=== PATIENT | female | born 1995 | race Caucasian/White ===

== ENCOUNTER 2020-04-24 20:30 | Emergency (ER) | payer OTHER, SELFPAY ==
--- NOTE | ~2020-04-24 | US_ITS ---
US OB <= 14 weeks fetus DATE: 04/24/2020 22:05 INDICATION: Abdominal pain in TECHNIQUE: Real-time imaging and Doppler analysis COMPARISON: None FINDINGS: No intrauterine gestational sac is identified. Central endometrial echo measures up to 9 mm AP dimension. There is measures 9.0 cm height, 4.2 cm AP and 6.9 cm transverse dimension. Right ovary 4.4 x 3.4 x 3.5 cm with a 3.7 cm cyst. Left ovary 2.6 x 2.1 x 2.1 cm with a 1.6 cm cyst. There is mild free fluid adjacent to the right ovar y. IMPRESSION: No intrauterine gestational sac identified Bilateral ovarian cysts, small fluid collection adjacent to right ovary Reviewed, dictated and finalized at [facility]. Reviewed, dictated and finalized at [facility]. ITAL ADMISSIONS OFFICER
[2020-04-24 20:31] VITALS: BP 126/73; PULSE 113; RESP 20; TEMP 37.3; O2SAT 100
--- NOTE | 2020-04-24 20:44 | ED.ABDPAIN ---
HPI - Abdominal Pain General Chief Complaint: Abdominal Pain Stated Complaint: ,cramping, dizzy Time Seen by Provider: 04/24/20 20:33 Source: RN notes reviewed History of Present Illness HPI narrative: Patient presents to emergency department from home for abdominal pain. Patient states symptoms began yesterday. The pain is described as cramping located in the bilateral lower abdomen. Patient states she is but has not seen RAIL FILLER. States her last menstrual cycle was at the beginning of February. Patient is G4, P3. She denies any fevers or chills chest pain shortness of breath nausea vomiting diarrhea vaginal bleeding or discharge or any other symptoms states she has had no work-up for her current she states she took no pain medication at Related Data Home Medications Medication Instructions Recorded Confirmed No Home Medications 04/24/20 04/24/20 Allergies Allergy/AdvReac Type Severity Reaction Status Date / Time No Known Allergies Allergy Verified 04/24/20 20:37 Review of Systems Review of Systems: Narrative: Gen.: Denies fevers or chills Eyes: Denies eye pain or visual change ENT: Denies congestion Respiratory: Denies shortness of breath or cough CV: Denies chest pain or palpitations GI: Reports abdominal pain. Denies nausea vomiting or diarrhea denies vaginal bleeding or discharge Musculoskeletal: Denies back pain or muscle pain Neuro: Denies numbness, tingling, weakness or focal weakness reports mild dizziness Skin: Denies rash Except as documented, all other systems reviewed and negative [facility] Past Medical History Medical History (Updated 04/24/20 @ 22:42 by Scotty Colbert DO) Patient denies significant medical history Social History Social History (Updated 04/24/20 @ 20:45 by Scotty Colbert DO) Smoking status: Never smoker Exam Narrative: Exam Narrative: APPEARANCE: No acute distress, nontoxic, resting in bed HEENT: Normocephalic, atraumatic, OMM RESPIRATORY: No respiratory distress, clear to auscultation bilaterally with no rhonchi wheezing or rales CARDIOVASCULAR: RRR s murmur ABDOMINAL: Soft nondistended, diffusely tender to palpation no rebound or guarding : Normal external exam today small amount of white discharge no vaginal bleeding cervix closed MUSCULOSKELETAl: Moves all extremities. No clubbing, cyanosis or edema. NEURO: Awake and alert. Following commands, speech normal, no focal deficits SKIN:: Warm, dry. Normal Color PSYCHIATRIC: Normal affect/mood Course Course Emergency Course: Called and discussed with Dr. Murillo presentation and work-up this time agrees with plan for discharge to follow-up as an Patient states that they are feeling much better at this time. States abdominal pain has resolved. Repeat abdominal exam shows the patient's abdomen to be soft and nontender. Discussed with patient results of workup and diagnosis. Discussed need for follow-up with primary care physician, reasons to return to the emergency department in proper use of medication. Patient understands and agrees to current treatment plan I did discuss with the patient ultrasound results and that no IUP is seen discussed possibility of early versus early ectopic and need for follow-up with RAIL FILLER in 2 days for further evaluation Vital Signs Vital signs: Vital Signs Temperature 99.2 F 04/24/20 20:31 Pulse Rate 113 H 04/24/20 20:31 Respiratory Rate 20 04/24/20 20:31 Blood Pressure 126/73 04/24/20 20:31 Pulse Oximetry 100 04/24/20 20:31 Temperature 99.2 F 04/24/20 20:31 Pulse Rate 113 H 04/24/20 20:31 Respiratory Rate 20 04/24/20 20:31 Blood Pressure 126/73 04/24/20 20:31 Pulse Oximetry 100 04/24/20 20:31 MDM - Abdominal Pain Lab Data Result diagrams: 04/24/20 20:50 04/24/20 20:50 Labs: Lab Results 04/24/20 04/24/20 04/24/20 Range/Units 20:50 20:50 20:50 WBC 7.3 (4.5-10.0) K/m
[2020-04-24] MEDS: SODIUM CHLORIDE 0.9% IV 1,000 ML 999 ML IV CONT (20:52)
[2020-04-24 20:55] LABS: Basophils Absolute Auto 0.1 K/mm3 (0.0-0.1); Eosinophils Absolute Auto 0.2 K/mm3 (0-0.3); Eosinophils Percent Auto 2.3 % (0-4.4); Hematocrit 37.5 % (37.0-47.0); Hemoglobin 13.3 g/dL (12.0-15.0); Immature Granulocyte Absolute 0.02 K/mm3 (0.00-0.031); Immature Granulocyte Percent A 0.3 % (0-0.5); Lymphocytes Absolute Auto 2.62 K/mm3 (0.9-3.2); Lymphocytes Percent Auto 36.1 % (18.3-44.2); Mean Corpuscular HGB Conc 35.5 g/dl (32-36); Mean Corpuscular Hemoglobin 32.4 pg (26-34); Mean Corpuscular Volume 91.5 fl (80-100); Mean Platelet Volume 9.8 fl (7.4-10.4); Monocytes Absolute Auto 0.6 K/mm3 (0.1-0.6); Monocytes Percent Auto 7.6 % (2.6-8.5); Neutrophils Absolute Auto 3.8 K/mm3 (1.3-6.7); Neutrophils Percent Auto 52.7 % (45.5-73.1); Platelet Count Result 226 k/mm3 (150-375); Red Cell Distribution Width 12.3 % (11.5-14.5); White Blood Count 7.3 K/mm3 (4.5-10.0)
[2020-04-24 20:58] LABS: Add Urine Microscopic? YES; Appearance Urine Clear (Clear); Bacteria Urine Trace /hpf; Bilirubin Urine Negative (Negative); Blood Urine Negative (Negative); Color Urine Straw (Yellow); Glucose Urine UA Negative (Negative); Ketones Urine Negative (Negative); Leukocyte Esterase Ur Trace LEU/UL (Negative); Mucus Urine Rare /lpf; Nitrate Urine Negative (Negative); Protein Urine Negative (Negative); RBC Urine 0-2 /hpf (0-2); Specific Grav Ur 1.013 (1.001-1.035); Squamous Epithelial Cell Urine Many /hpf (Few); Urobilinogen Urine Negative mg/dL (<2.0); WBC Urine 0-3 /hpf
[2020-04-24 21:10] LABS: Alanine Aminotransferase 14 U/L (4-35); Albumin Level 4.4 g/dL (3.5-5.1); Alkaline Phosphatase 46 U/L (38-126); Anion Gap 8 mmol/L (8-16); Aspartate Amino Transferase 21 U/L (14-36); Bilirubin,Total 0.4 mg/dL (0.2-1.3); Blood Urea Nitrogen 12 mg/dL (7-17); Calcium 9.5 mg/dL (8.4-10.2); Carbon Dioxide 25 mmol/L (22-30); Chloride 105 mmol/L (98-107); Estimated CRCL calculation 103 ml/min; Estimated Glomerular Filt Rate > 60; Glucose 97 mg/dL (65-105); Lipase 135 U/L (23-300); Potassium 3.8 mmol/L (3.4-5.0); Sodium 138 mmol/L (137-145)
[2020-04-24 22:56] VITALS: BP 107/68; PULSE 99; RESP 18; O2SAT 100
== END 2020-04-24 22:57 | disposition home or self-care (01) ==
PROVIDERS: Emergency Provider Emergency Medicine; PCP Physician Assistant
DX: O26.891 Other specified pregnancy related conditions, first trimester (principal); R10.32 Left lower quadrant pain; O34.81 Maternal care for other abnormalities of pelvic organs, first trimester; N83.202 Unspecified ovarian cyst, left side; N83.201 Unspecified ovarian cyst, right side; Z3A.01 Less than 8 weeks gestation of pregnancy
CPT/HCPCS: 36415; 76801; 80053; 81001; 81025; 83690; 84702; 85025; 96361; 96374; 99284; J0131; J7030

== ENCOUNTER 2020-05-03 09:51 | Outpatient (CLI) | payer OTHER, SELFPAY | END 2020-05-03 09:52 | disposition home or self-care (01) | LOC: ANHLAB 09:52 | PROVIDERS: PCP Physician Assistant; Visit Provider Obstetrics & Gynecology | DX: O20.0 Threatened abortion (principal) | CPT/HCPCS: 36415; 84702 ==

== ENCOUNTER 2020-05-07 09:31 | Outpatient (CLI) | payer OTHER, SELFPAY ==
--- NOTE | ~2020-05-07 | US_ITS ---
EXAMINATION: US OB <=14 wk fetus w TV EXAM DATE: 05/07/2020 10:12 INDICATION: Threatened . Check viability. 1st trimester. TECHNIQUE: Pelvic obstetrical transabdominal and transvaginal sonogram was performed by a technologrodri michelle. There are multiple grayscale and Doppler images available for interpretation. Comparison is made to prior examination from 04/24/2020. FINDINGS: Uterus measures 9.4 x 5.5 x 6.5 cm. There is intrauterine gestation sac. The 1.1 cm mean sac diameter corresponds to estimated gestational age by ultrasound of 5 weeks 5 days. Yolk sac is i dentified. No pole is identified. There is no sonographic evidence of subchorionic hemorrhage. Right ovary likely has the corpus luteal cyst. IMPRESSION: Small intrauterine gestation sac, age by ultrasound 5 weeks 5 days. Cannot confirm pole or viability at this time. Reviewed, dictated and finalized at [facility]. ITY SUPERVISOR IMPRESSION: Small intrauterine gestation sac, age by ultrasound 5 weeks 5 days . Cannot confirm pole or viability at this time.
== END 2020-05-07 09:32 | disposition home or self-care (01) ==
LOC: ANHIMG 09:39
PROVIDERS: PCP Physician Assistant; Visit Provider Obstetrics & Gynecology
DX: O20.0 Threatened abortion (principal); Z3A.01 Less than 8 weeks gestation of pregnancy
CPT/HCPCS: 76801; 76817

== ENCOUNTER 2020-06-13 08:57 | Emergency (ER) | payer OTHER, SELFPAY ==
[2020-06-13 09:00] VITALS: BP 124/86; PULSE 91; RESP 16; TEMP 36.8; O2SAT 100
[2020-06-13 09:20] LABS: Add Urine Microscopic? YES; Appearance Urine Sl Cloudy (Clear); Bilirubin Urine Negative (Negative); Blood Urine 1+ (Negative); Color Urine Yellow (Yellow); Glucose Urine UA Negative (Negative); Ketones Urine Negative (Negative); Leukocyte Esterase Ur 2+ LEU/UL (Negative); Nitrate Urine Negative (Negative); Protein Urine Trace (Negative); Specific Grav Ur 1.025 (1.010-1.020); Urobilinogen Urine 0.2 mg/dL (0.2-1.0); pH Urine 6.5 (5.0-8.0)
--- NOTE | 2020-06-13 09:23 | ED.NAVMDI ---
HPI - Nausea/Vomiting/Diarrhea General Chief complaint: Nausea/Vomiting/Diarrhea Stated complaint: ambulance Source: patient, family and RN notes reviewed Mode of arrival: ambulatory Limitations: no limitations History of Present Illness MD elicited complaint: nausea and vomiting Onset (ago): hour(s) (8) Description of vomiting: food contents and watery Associated nausea: Yes Associated abdominal pain: Yes Location of pain: diffuse Pain consistency: colicky Severity: moderate Quality: cramping Exacerbating factors: eating Relieving factors: none Associated symptoms: denies other symptoms Related Data Allergies Allergy/AdvReac Type Severity Reaction Status Date / Time Penicillins Allergy Unknown Verified 06/13/20 09:08 Review of Systems Review of Systems: All systems reviewed & are unremarkable except as noted in HPI and below PMFSH Past Medical History Medical History (Updated 06/13/20 @ 10:43 by Sebastian Gilman MD) Anxiety and depression Patient denies significant medical history Social History Social History Smoking status: Never smoker Alcohol intake: never Substance use: never Exam Const: General: healthy appearing and no acute distress Nutritional Appearance: well nourished and thin Orientation/consciousness: patient oriented x3 Other: female nurse in room during examination. HENMT: Head: normal to inspection Eyes: Cornea: corneas normal Pupils: Equal, round and reactive pupils present EOM: EOMs intact bilaterally Neck: Neck: normal visual inspection Resp: Effort & Inspection: normal respiratory effort Auscultation: clear to auscultation bilaterally Cardio: Rate: regular rate Rhythm: regular rhythm GI: GI Palp: Yes Soft to palpation, Yes Tenderness to palpation present (GI) (moderate lower quadrants), Yes Guarding due to palpation present (GI) and No Rebound tenderness present Auscultation: normal bowel sounds : General: Yes no CVA tenderness Back/Spine/Pelvis: Cervical Spine: cervical ROM normal Thoracic/Lumbar Spine: thoraco-lumbar ROM normal Skin: General skin exam: normal color Rashes: no rashes Neuro: General: patient oriented x3, moves all extremities, no meningeal signs and no focal motor deficits Speech: normal speech Gait exam (Neuro): Normal gait present Extrem: General: normal to inspection and no clubbing, cyanosis or edema Psych: Appearance: grossly normal and well kempt Mental Status: mental status grossly normal Affect: normal affect Attitude: cooperative Thought content: Yes Normal thought content present Course Vital Signs Vital signs: Vital Signs Temperature 36.8 C 06/13/20 09:00 Pulse Rate 91 06/13/20 09:00 Respiratory Rate 16 06/13/20 09:00 Blood Pressure 124/86 06/13/20 09:00 Pulse Oximetry 100 06/13/20 09:00 Temperature 36.8 C 06/13/20 09:00 Pulse Rate 91 06/13/20 09:00 Respiratory Rate 16 06/13/20 09:00 Blood Pressure 124/86 06/13/20 09:00 Pulse Oximetry 100 06/13/20 09:00 MDM - Nausea/Vomiting/Diarrhea Lab Data Attestation: I reviewed the patient's lab results. Labs: Lab Results 06/13/20 Range/Units 09:02 Urine Color Pending Urine Appearance Pending Urine pH Pending Ur Specific [place] Pending Urine Protein Pending Urine Glucose (UA) Pending Urine Ketones Pending Ur Blood (Man) Pending Urine Nitrate Pending Urine Bilirubin Pending Urine Urobilinogen Pending Leukocyte Esterase Rfl Pending Discharge Plan Discharge Clinical Impression: UTI (urinary tract infection) Qualifiers: Urinary tract infection type: site unspecified Hematuria presence: without hematuria Qualified Code(s): N39.0 - Urinary tract infection, site not specified Patient Disposition: Home, Self-Care Condition: Stable Instructions: Urinary Tract Infection in Women (ED) Additional Instructions: Drink plenty of flu
[2020-06-13 09:28] LABS: Bacteria Urine 2+ /hpf; Mucus Urine Moderate /lpf; Squamous Epithelial Cell Urine Many /hpf (Few); WBC Urine 16-20 /hpf (0-3)
[2020-06-13 09:33] LABS: Basophils Absolute Auto 0.03 K/mm3 (0.00-0.10); Basophils Percent Auto 0.7 % (0.0-1.0); Eosinophils Absolute Auto 0.01 K/mm3 (0.02-0.50); Eosinophils Percent Auto 0.2 % (1.0-6.0); Hematocrit 37.7 % (35.0-49.0); Hemoglobin 13.2 g/dL (12.0-15.0); Immature Granulocyte Absolute 0.02 K/mm3 (0.00-0.00); Immature Granulocyte Percent A 0.4 % (0.0-0.0); Lymphocytes Absolute Auto 0.77 K/mm3 (1.10-4.50); Lymphocytes Percent Auto 16.9 % (18.0-42.0); Mean Corpuscular Hemoglobin 31.9 pg (27.0-31.0); Mean Corpuscular Volume 91.1 fL (78.0-102.0); Mean Platelet Volume 9.9 fl (9.2-11.8); Monocytes Absolute Auto 0.19 K/mm3 (0.10-0.90); Monocytes Percent Auto 4.2 % (2.0-11.0); Neutrophils Absolute Auto 3.5 K/mm3 (1.7-7.2); Neutrophils Percent Auto 77.6 % (50.0-70.0); Platelet Count Result 209 K/mm3 (150-420); Red Blood Count 4.14 M/mm3 (4.20-5.40); Red Cell Distribution Width 12.7 % (11.6-14.4); White Blood Count 4.6 K/mm3 (4.8-10.8)
[2020-06-13 09:54] LABS: Alanine Aminotransferase 16 U/L (14-59); Albumin Level 4.1 g/dL (3.4-5.0); Alkaline Phosphatase 48 U/L (46-116); Anion Gap 13 mmol/L (8-16); Aspartate Amino Transferase 10 U/L (15-37); Bilirubin,Total 0.5 mg/dL (0.00-1.00); Blood Urea Nitrogen 7 mg/dL (7-18); Calcium 9.2 mg/dL (8.5-10.1); Carbon Dioxide 22 mmol/L (21-32); Chloride 107 mmol/L (98-108); Estimated Glomerular Filt Rate > 60; Glucose 105 mg/dL (70-99); Lipase 115 U/L (73-393); Osmolality Calculated 292 mOsm/kg (285-295); Potassium 3.8 mmol/L (3.5-5.1); Sodium 142 mmol/L (136-145); Total Protein 7.4 g/dL (6.4-8.2)
[2020-06-13 09:55] LABS: CRP 0.3 mg/dL (0.0-0.9)
[2020-06-13] MEDS: ONDANSETRON HCL ODT 4 MG TABLET (10:23)
[2020-06-13 10:39] LABS: Urine Pregnancy Test Negative
[2020-06-13 10:40] LABS: Pregnancy On Board Control Positive
[2020-06-13 10:57] VITALS: RESP 16
== END 2020-06-13 10:57 | disposition home or self-care (01) ==
PROVIDERS: Emergency Provider Emergency Medicine; PCP Physician Assistant
DX: N39.0 Urinary tract infection, site not specified (principal)
CPT/HCPCS: 36415; 80053; 81001; 81025; 83690; 84702; 85025; 86140; 87086; 99283; A9270

== ENCOUNTER 2020-08-14 16:03 | Emergency (ER) | payer OTHER, SELFPAY ==
--- NOTE | ~2020-08-14 | US_ITS ---
US pelvic complete w TV DATE: 08/14/2020 19:33 INDICATION: Pelvic pain TECHNIQUE: Real-time imaging via transabdominal and transvaginal approaches COMPARISON: None FINDINGS: The uterus measures 6.5 cm height, up to 4 cm anteroposterior and 4.9 cm transverse dimensi on. The central endometrial echo measures 4 mm AP dimension. Right ovary 3.1 x 2.2 x 2.5 cm, with vascular flow. There is a 2.3 x 2.0 cm cyst. Left ovary measures 2.3 x 1.6 x 1.2 cm with vascular flow. No abnormal pelvic fluid collection is evident. IMPRESSION: 2 x 2.3 cm right ovarian cyst Reviewed, dictated and finalized at [facility]. Reviewed, dictated and finalized at [facility].
[2020-08-14 16:05] VITALS: BP 129/79; PULSE 108; RESP 16; TEMP 36.8; O2SAT 100
--- NOTE | 2020-08-14 17:20 | ED.GENADULT ---
HPI - General Adult General Chief complaint: [employer] Stated complaint: -cramping Time Seen by Provider: 08/14/20 16:10 Source: patient Mode of arrival: ambulatory Limitations: no limitations History of Present Illness HPI narrative: Patient presents for evaluation of abdominal pain. She states that she took two home tests on 08/03/20, both of which were positive. She went to a local clinic near where she resides and had a repeat test that same day which was positive. . She has not established care with an [employer] during this . States the pain is in the lower part of her abdomen and radiates into her back. She describes the pain as crampy. She denies any fever, chills, nausea, vomiting, urinary symptoms, vaginal bleeding or discharge. Blood type unknown. No history of abdominal surgeries. All prior pregnancies were vaginally delivered. She tried [id number] agents without much improvement of her symptoms. Related Data Allergies Allergy/AdvReac Type Severity Reaction Status Date / Time Penicillins Allergy Unknown Verified 08/14/20 16:23 Review of Systems Review of Systems: Narrative: CONSTITUTIONAL: Denies fever, chills, or sweats. EYES: Denies visual changes, redness, or discharge. ENT: Denies rhinorrhea, congestion, sore throat, or otalgia. CARDIOVASCULAR: Denies chest pain, palpitations, or edema. RESPIRATORY: Denies cough or dyspnea. GASTROINTESTINAL: Reports abdominal pain described as cramping . Denies nausea, vomiting, or diarrhea. GENITOURINARY: Denies dysuria or hematuria. SKIN: Denies rash or itching. MUSCULOSKELETAL: Reports back pain. Denies joint pain, or myalgia. NEUROLOGIC: Denies headache, numbness, dizziness, or weakness. PSYCHIATRIC: Denies anxiety or depression. [facility] Past Medical History Medical History (Updated 08/14/20 @ 20:05 by Dionte Quiroz, LYNDSEY, MARILYN) Anxiety and depression Patient denies significant medical history Surgical History Surgical History No pertinent past surgical history Family History Family History Mother No pertinent past medical history Social History Social History Smoking status: Never smoker Alcohol intake: never Substance use: never Gender identity (if verbalized by the patient): Female Sexual Orientation (if Verbalized by the Patient): Straight or Heterosexual Spiritual care concerns: No Exam Narrative: Exam Narrative: GENERAL: Well-appearing, well-nourished, and in no acute distress. HEAD: Normocephalic, atraumatic. EYES: PERRLA and EOMI. ENT: Nares clear, no rhinorrhea or epistaxis. Mucous membranes moist. Oropharynx without tonsillar hypertrophy exudate or other lesions. Bilateral TMs [place] nonbulging NECK: Supple. No adenopathy or masses. No carotid bruits or JVD CHEST: Clear to auscultation. No respiratory distress. No wheezes rales or rhonchi HEART: Regular rate and rhythm. No murmur heard. Normal peripheral pulses. ABDOMEN: Soft, tenderness in suprapubic region. Abdomen is nondistended, normal active bowel sounds. EXTREMITIES: Normal range of motion. No edema. SKIN: Warm, dry, no rash. NEURO: No focal deficits. Alert and oriented x3. PSYCH: Normal mood and affect. : No external genital lesions. Bilateral adnexal tenderness. No cervical motion tenderness. Moderate amount of mucus consistent white drainage in vaginal vault Course Course Emergency Course: This is a 25-year-old female that presented with complaints of abdominal pain with three positive tests. Initial work-up was placed rule out ectopic . Her urine hCG and quantitative hCG resulted as negative. Pelvic ultrasound which showed an ovarian cyst. She states she has tried several [id number] agents without much improvement. We will give her
[2020-08-14] MEDS: LACTATED RINGERS 1,000 ML 999 ML IV CONT (17:54)
[2020-08-14 18:02] LABS: Basophils Percent Auto 0.9 % (0.2-1.2); Eosinophils Absolute Auto 0.2 K/mm3 (0-0.3); Eosinophils Percent Auto 3.5 % (0-4.4); Hematocrit 41.6 % (37.0-47.0); Hemoglobin 14.5 g/dL (12.0-15.0); Immature Granulocyte Absolute 0.02 K/mm3 (0.00-0.031); Immature Granulocyte Percent A 0.4 % (0-0.5); Lymphocytes Absolute Auto 1.55 K/mm3 (0.9-3.2); Lymphocytes Percent Auto 34.1 % (18.3-44.2); Mean Corpuscular HGB Conc 34.9 g/dl (32-36); Mean Corpuscular Hemoglobin 32.1 pg (26-34); Mean Platelet Volume 10.1 fl (7.4-10.4); Monocytes Absolute Auto 0.4 K/mm3 (0.1-0.6); Monocytes Percent Auto 7.7 % (2.6-8.5); Neutrophils Absolute Auto 2.4 K/mm3 (1.3-6.7); Neutrophils Percent Auto 53.4 % (45.5-73.1); Platelet Count Result 190 k/mm3 (150-375); Red Blood Count 4.52 M/mm3 (4.2-5.4); Red Cell Distribution Width 12.7 % (11.5-14.5); White Blood Count 4.5 K/mm3 (4.5-10.0)
[2020-08-14 18:10] LABS: Add Urine Microscopic? YES; Appearance Urine Clear (Clear); Bacteria Urine Trace /hpf; Bilirubin Urine Negative (Negative); Blood Urine 1+ (Negative); Color Urine Straw (Yellow); Glucose Urine UA Negative (Negative); Ketones Urine Negative (Negative); Leukocyte Esterase Ur Negative LEU/UL (Negative); Mucus Urine Rare /lpf; Nitrate Urine Negative (Negative); Protein Urine Negative (Negative); RBC Urine 0-2 /hpf (0-2); Specific Grav Ur 1.006 (1.001-1.035); Squamous Epithelial Cell Urine Few /hpf (Few); Urobilinogen Urine Negative mg/dL (<2.0); WBC Urine 0-3 /hpf
[2020-08-14 18:13] LABS: Alanine Aminotransferase 15 U/L (4-35); Albumin Level 4.9 g/dL (3.5-5.1); Alkaline Phosphatase 49 U/L (38-126); Anion Gap 10 mmol/L (8-16); Aspartate Amino Transferase 26 U/L (14-36); Bilirubin,Total 0.5 mg/dL (0.2-1.3); Blood Urea Nitrogen 11 mg/dL (7-17); Calcium 9.7 mg/dL (8.4-10.2); Carbon Dioxide 26 mmol/L (22-30); Chloride 106 mmol/L (98-107); Estimated CRCL calculation 81 ml/min; Estimated Glomerular Filt Rate > 60; Glucose 81 mg/dL (65-105); Lipase 144 U/L (23-300); Potassium 3.5 mmol/L (3.4-5.0); Sodium 142 mmol/L (137-145)
[2020-08-14 18:19] LABS: INR 0.9; Partial Thromboplastin Time 26.9 SECONDS (22.3-36.8); Prothrombin Time 12.7 Seconds (11.1-14.7)
[2020-08-14 18:29] LABS: Beta HCG Quantitative < 2.39 mIU/ML
[2020-08-14 20:19] VITALS: BP 118/80; PULSE 77; RESP 18; TEMP 37.5; O2SAT 99
== END 2020-08-14 20:25 | disposition home or self-care (01) ==
PROVIDERS: Emergency Provider Nurse Practitioner; PCP Physician Assistant
DX: N83.201 Unspecified ovarian cyst, right side (principal)
CPT/HCPCS: 36415; 76830; 76856; 80053; 81001; 81025; 83690; 84702; 85025; 85610; 85730; 86900; 86901; 87070; 87491; 87591; 87808; 96360; 96361; 99284; J7120

== ENCOUNTER 2021-07-09 15:00 | Emergency (ER) | payer OTHER, SELFPAY ==
[2021-07-09 15:08] VITALS: BP 112/72; PULSE 100; RESP 17; TEMP 36.8; O2SAT 99
--- NOTE | 2021-07-09 15:14 | ECG_ITS ---
Measurements Intervals [place] Rate: 87 P: 60 OK: 154 QRS: 72 QRSD: 92 T: 35 QT: 339 QTc: 408 Interpretive Statements SINUS RHYTHM MINIMAL Q WAVES- INF/LAT LEADS BORDERLINE T WAVE ABNORMALITY- ANTERIOR LEADS BORDERLINE ECG Electronically Signed On 07-09-2021 15:35:19 CDT by Kam Reece D.O.
[2021-07-09 15:33] LABS: Basophils Percent Auto 0.7 % (0.2-1.2); Eosinophils Absolute Auto 0.1 K/mm3 (0-0.3); Hemoglobin 13.5 g/dL (12.0-15.0); Immature Granulocyte Absolute 0.02 K/mm3 (0.00-0.031); Immature Granulocyte Percent A 0.3 % (0-0.5); Lymphocytes Absolute Auto 1.78 K/mm3 (0.9-3.2); Lymphocytes Percent Auto 29.7 % (18.3-44.2); Mean Corpuscular HGB Conc 35.5 g/dl (32-36); Mean Corpuscular Hemoglobin 32.6 pg (26-34); Mean Corpuscular Volume 91.8 fl (80-100); Mean Platelet Volume 9.5 fl (7.4-10.4); Monocytes Absolute Auto 0.4 K/mm3 (0.1-0.6); Monocytes Percent Auto 7.2 % (2.6-8.5); Neutrophils Absolute Auto 3.6 K/mm3 (1.3-6.7); Neutrophils Percent Auto 60.1 % (45.5-73.1); Platelet Count Result 187 k/mm3 (150-375); Red Blood Count 4.14 M/mm3 (4.2-5.4); Red Cell Distribution Width 12.5 % (11.5-14.5)
[2021-07-09] MEDS: MECLIZINE HCL 25 MG TABLET PO (15:45)
[2021-07-09 15:50] LABS: Alanine Aminotransferase 14 U/L (6-35); Albumin Level 4.6 g/dL (3.5-5.1); Alkaline Phosphatase 49 U/L (38-126); Anion Gap 8 mmol/L (8-16); Aspartate Amino Transferase 21 U/L (14-36); Bilirubin,Total 0.9 mg/dL (0.2-1.3); Blood Urea Nitrogen 12 mg/dL (7-17); Calcium 9.1 mg/dL (8.4-10.2); Carbon Dioxide 23 mmol/L (22-30); Chloride 107 mmol/L (98-107); Estimated CRCL calculation 73 ml/min; Estimated Glomerular Filt Rate > 60; Glucose 103 mg/dL (65-110); Potassium 3.5 mmol/L (3.4-5.0); Sodium 138 mmol/L (137-145)
--- NOTE | 2021-07-09 16:15 | PC.NURSE ---
patient walked without difficulty to bathroom and back to room H2.
--- NOTE | 2021-07-09 17:34 | ED.DIZZY ---
HPI - Dizziness General Chief Complaint: Dizziness Stated Complaint: dizzy Time Seen by Provider: 07/09/21 15:20 History of Present Illness HPI Narrative: Patient is a 26-year-old female who presents ER with dizziness. Intermittent over the last day. Associated with nausea and poor balance. She will feel like her heart is racing. She feels like things are moving in front of her. No ringing in the ear pressure and ringing ears. No sinus congestion or sore throat or prescribed cough. She has history of peripheral vertigo in the past and this feels similar. No focal weakness in arm or leg. No slurred speech. Has not tried any medications. Symptoms are worse by leaning forward. Related Data Home Medications Medication Instructions Recorded Confirmed medroxyprogesterone mg IM 07/09/21 07/09/21 Allergies Allergy/AdvReac Type Severity Reaction Status Date / Time Penicillins Allergy Unknown Verified 07/09/21 15:07 Review of Systems Constitutional: Constitutional: Denies chills, Denies fever(s) and Denies weakness ENT: Reports dizziness, Denies nasal congestion and Denies sore throat Gastrointestinal: Gastrointestinal: Denies abdominal pain, Reports nausea and Denies vomiting Neurologic: Denies syncope, Denies focal weakness and Denies numbness PMFSH Past Medical History Medical History (Updated 07/09/21 @ 17:41 by Lavell Wong MD) Anxiety and depression Patient denies significant medical history Surgical History Surgical History No pertinent past surgical history Family History Family History Mother No pertinent past medical history Social History Social History Smoking status: Never smoker Alcohol intake: never Substance use: never Gender identity (if verbalized by the patient): Female Sexual Orientation (if Verbalized by the Patient): Straight or Heterosexual Spiritual care concerns: No Exam Narrative: GENERAL: Well-appearing, well-nourished, and in no acute distress. HEAD: Normocephalic, atraumatic. EYES: PERRL and EOMI. right gaze nystagmus. ENT: Mucous membranes moist. TMs normal bilaterally. Ear canals free of cerumen. CHEST: Clear to auscultation. No respiratory distress. HEART: Regular rate and rhythm. Normal peripheral pulses. EXTREMITIES: Normal range of motion. No edema. NEURO: Alert and oriented x3. PSYCH: Normal mood and affect. Course Course Emergency Course: Feels improved with meclizine. Discharge home. Vital Signs Vital signs: Vital Signs Temperature 98.2 F 07/09/21 15:08 Pulse Rate 100 07/09/21 15:08 Respiratory Rate 17 07/09/21 15:08 Blood Pressure 112/72 07/09/21 15:08 Pulse Oximetry 99 07/09/21 15:08 Temperature 98.2 F 07/09/21 15:08 Pulse Rate 100 07/09/21 15:08 Respiratory Rate 17 07/09/21 15:08 Blood Pressure 112/72 07/09/21 15:08 Pulse Oximetry 99 07/09/21 15:08 MDM - Dizziness Lab Data Result diagrams: 07/09/21 15:27 07/09/21 15:27 Labs: Lab Results 07/09/21 07/09/21 Range/Units 15:27 15:27 WBC 6.0 (4.5-10.0) K/mm3 RBC 4.14 L (4.2-5.4) M/mm3 Hgb 13.5 (12.0-15.0) g/dL Hct 38.0 (37.0-47.0) % MCV 91.8 (80-100) fl MCH 32.6 (26-34) pg MCHC 35.5 (32-36) g/dl RDW 12.5 (11.5-14.5) % Plt Count 187 (150-375) k/mm3 MPV 9.5 (7.4-10.4) fl Immature Gran % (Auto) 0.3 (0-0.5) % Neut % (Auto) 60.1 (45.5-73.1) % Lymph % (Auto) 29.7 (18.3-44.2) % [place] % (Auto) 7.2 (2.6-8.5) % Eos % (Auto) 2.0 (0-4.4) % Baso % (Auto) 0.7 (0.2-1.2) % Lymph # (Auto) 1.78 (0.9-3.2) K/mm3 [place] # (Auto) 0.4 (0.1-0.6) K/mm3 Eos # (Auto) 0.1 (0-0.3) K/mm3 Baso # (Auto) 0.0 (0.0-0.1) K/mm3 Abs Immat Gran (auto) 0.02 (0.00-0.031) K/mm3
[2021-07-09 18:12] VITALS: BP 119/78; PULSE 97; RESP 20; O2SAT 99
== END 2021-07-09 18:13 | disposition home or self-care (01) ==
PROVIDERS: Emergency Provider Emergency Medicine; PCP Physician Assistant
DX: R42 Dizziness and giddiness (principal); R94.31 Abnormal electrocardiogram [ECG] [EKG]
CPT/HCPCS: 36415; 80053; 81025; 85025; 93005; 99283; A9270